=== PATIENT | male | born 2000 | race Hispanic/Latino ===

== ENCOUNTER 2023-04-16 11:52 | Emergency (ER) | payer OTHER ==
[~2023-04-16] VITALS: Ht 167.6 cm; Wt 72.6 kg
[2023-04-16 12:01] VITALS: BP 147/95; PULSE 93; RESP 16
[2023-04-16] MEDS ORDERED: DOXY-252 PO (14:15)
[2023-04-16] MEDS: DOXYCYCLINE HYCLATE 100 MG TABLET PO ONE (14:58)
[2023-04-16] MEDS: TETANUS/DIPHTHERIA TOXOID [ADULT] 0.5 ML VIAL IM ONE (14:58)
[2023-04-16] MEDS ORDERED: SULF1TAB42 PO (22:27)
[2023-04-16] MEDS ORDERED: CEPH500B PO (22:27)
[2023-04-16] MEDS ORDERED: IBUP-2070 PO (22:27)
== END 2023-04-16 14:59 | disposition home or self-care (01) ==
LOC: EDH 11:52
DX: L03.211 Cellulitis of face (principal); Z79.899 Other long term (current) drug therapy
CPT/HCPCS: 90471; 90714; 96361

== ENCOUNTER 2023-04-16 20:31 | Emergency (ER) | payer OTHER ==
[~2023-04-16] VITALS: Ht 170.2 cm; Wt 74.8 kg
[~2023-04-16 20:31] MED LIST: DOXY-252 PO
[2023-04-16] MEDS ORDERED: CEPH500B PO (22:27)
[2023-04-16] MEDS ORDERED: IBUP-2070 PO (22:27)
[2023-04-16] MEDS ORDERED: SULF1TAB42 PO (22:27)
[2023-04-16 22:32] LABS: BASOPHILS # (AUTO) 0.04 K/uL (0.00-0.20); BASOPHILS % (AUTO) 0.4 % (0.0-5.0); EOSINOPHILS # (AUTO) 0.08 K/uL (0.00-0.70); EOSINOPHILS % (AUTO) 0.9 % (0.0-8.0); HEMATOCRIT 47.3 % (42-54); IMMATURE GRANULOCYTE ABSOLUTE 0.06 K/uL (0-1); LYMPHOCYTES # (AUTO) 1.7 K/uL (1.0-4.8); LYMPHOCYTES % (AUTO) 17.7 % (21.0-51.0); MEAN CORPUSCULAR HEMOGLOBIN 28.6 pg (27.0-33.0); MEAN CORPUSCULAR HGB CONC 33.4 g/dL (32.0-36.0); MEAN CORPUSCULAR VOLUME 85.5 fL (79-99); MONOCYTES # (AUTO) 1.1 K/uL (0.1-1.0); MONOCYTES % (AUTO) 11.7 % (3.0-13.0); NEUTROPHILS # (AUTO) 6.4 K/uL (1.8-7.7); NEUTROPHILS % (AUTO) 68.7 % (40.0-77.0); PLATELET COUNT (AUTO) 150 K/uL (130-400); RED BLOOD CELL COUNT(AUTO) 5.53 MIL/uL (4.50-6.20); WHITE BLOOD COUNT (AUTO) 9.3 K/uL (4.8-10.8)
[2023-04-16] MEDS: CEFTRIAXONE 1G VIAL IM ONE (22:33)
[2023-04-16] MEDS: KETOROLAC 30MG VIAL (30MG/ML) IM ONE (22:33)
[2023-04-16] MEDS: LIDOCAINE HCL 1% 20 ML VIAL INJ SCH (22:33)
[2023-04-16] MEDS: SULFAMETHOX-TMP DS 800/160 TAB PO SCH (22:33)
[2023-04-16 22:46] LABS: CREATININE 1.1 mg/dL (0.5-1.5)
[2023-04-16 22:51] LABS: ALBUMIN 4.1 g/dL (3.5-5.0); BILIRUBIN,TOTAL 0.7 mg/dL (0.2-1.0); TOTAL PROTEIN, SERUM 7.7 g/dL (6.0-8.3)
[2023-04-16 23:03] VITALS: BP 130/82; PULSE 80; RESP 18; O2SAT 99
== END 2023-04-16 23:04 | disposition home or self-care (01) ==
LOC: EDH 20:31
DX: L03.211 Cellulitis of face (principal); Z79.899 Other long term (current) drug therapy
CPT/HCPCS: 99284; 10060; 80053; 85025; 87070; 87076; 83605; 36415; 96372 ×2; J0696; J1885